=== PATIENT | male | born 1975 | race African-American/Black ===

== ENCOUNTER 2019-03-01 09:49 | Emergency (ER) | payer SELFPAY ==
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
[2019-03-01] MEDS ORDERED: SILVER SULFADIAZINE 1% 25 GM TOP ONE (11:01)
== END 2019-03-01 11:19 | disposition home or self-care (01) ==
LOC: ER 09:49
DX: T23.272A Burn of second degree of left wrist, initial encounter (principal); T31.0 Burns involving less than 10% of body surface; X19.XXXA Contact with other heat and hot substances, initial encounter; Y92.009 Unspecified place in unspecified non-institutional (private) residence as the place of occurrence of the external cause; Z72.0 Tobacco use; I10 Essential (primary) hypertension
CPT/HCPCS: 99283

== ENCOUNTER → 2023-11-19 | Emergency (ER) | payer SELFPAY ==
[~2023-11-19] MED LIST: IBUPROFEN 400 MG TAB ONE; ONDANSETRON 4 MG (ODT) TAB ONE
[2023-11-19 18:35] LABS: SARS-CoV-2 Antigen Rapid Res Negative (Negative)
--- NOTE | 2023-11-19 18:39 | ER ---
Nurse's Notes [facility] Name: Chase Irene Age: 48 yrs Sex: Male : 1975 Arrival Date: 11/19/2023 Time: 17:47 Bed Treatment Private MD: Diagnosis: Viral infection, unspecified Presentation: 11/19 18:00 Chief complaint: Patient states: Fever, chills, diarrhea, cough and body aches since Sunday. Coronavirus screen: Vaccine status:. Ebola Screen: No symptoms or risks identified at this time. Initial Sepsis Screen: Does the patient meet any 2 criteria? No. Patient's initial sepsis screen is negative. Does the patient have a suspected source of infection? No. Patient's initial sepsis screen is negative. Risk Assessment: Do you want to hurt yourself or someone else? Patient reports no desire to harm self or others. Onset of symptoms was November 19, 2023. 18:00 Method Of Arrival: Ambulatory 18:00 Acuity: BRANDEN 4 ph Historical: - Allergies: 18:03 No Known Allergies; ph - PMHx: 18:03 Hypertension; ph - Immunization history:: Adult Immunizations unknown. - Social history:: Smoking status: Patient reports the use of cigarette tobacco products, denies chronic smoking, but will smoke occasionally. Screenin:18 [facility] ED Fall Risk Assessment (Adult) History of falling in the last 3 months, kc6 including since admission No falls in past 3 months (0 pts) Confusion or Disorientation No (0 pts) Intoxicated or Sedated No (0 pts) Impaired Gait No (0 pts) Mobility Assist Device Used No (0 pt) Altered Elimination No (0 pt) Score/Fall Risk Level 0 - 2 = Low Risk. Abuse screen: Denies threats or abuse. Denies injuries from another. Nutritional screening: No deficits noted. Tuberculosis screening: No symptoms or risk factors identified. Assessment: 18:19 General: Appears in no apparent distress. comfortable, well groomed, well developed, kc6 Behavior is calm, cooperative, appropriate for age, Reports chills for fever for feeling ill for. Neuro: Level of Consciousness is awake, alert, obeys commands, Oriented to person, place, time, situation, Appropriate for age. Cardiovascular: Capillary refill < 3 seconds. Respiratory: Reports cough that is Airway is patent Trachea midline Respiratory effort is even, unlabored, Respiratory pattern is regular, symmetrical. GI: Reports diarrhea, nausea, Patient currently denies abdominal pain, vomiting. : No signs and/or symptoms were reported regarding the genitourinary system. EENT: No signs and/or symptoms were reported regarding the EENT system. Derm: No signs and/or symptoms reported regarding the dermatologic system. Skin is intact, is healthy with good turgor, Skin is pink, warm \T\ dry. Musculoskeletal: No signs and/or symptoms reported regarding the musculoskeletal system. Circulation, motion, and sensation intact. Capillary refill < 3 seconds, Range of motion: intact in all extremities. Vital Signs: 18:00 BP 151 / 94; Pulse 90; Resp 18; Temp 98; Pulse Ox 98% on R/A; Weight 104.33 kg; Height ph 5 ft. 11 in. ; 18:00 Body Mass Index 32.08 (104.33 kg, 180.34 cm) ph ED Course: 17:51 Patient arrived in ED. mr 17:54 Jaz Calles PA-C is PHCP. sb4 17:54 Wilian Paulson MD is Attending Physician. sb4 18:03 Triage completed. ph 18:03 Arm band placed on Patient placed in waiting room, Patient notified of wait time. ph 18:09 Guerda Riddle, RN is Primary Nurse. kc6 18:18 Patient has correct armband on for positive identification. Bed in low position. Call kc6 light in reach. Side rails up X 1. Adult w/ patient. Client placed on continuous cardiac and pulse oximetry monitoring. NIBP monitoring applied. 18:18 Patient maintains SpO2 saturation greater than 95% on room air. kc6 18:45 No provider procedures requiring assistance completed. Patient did not have IV access kc6 during this emergency room visit. Administered Medications: 18:18 Drug: Ondansetron Oral Disintegrating Tablet Oral Disintegrating Tablet 4 mg PO once kc6 Route: PO; 18:45 Follow up: Response: No adverse reaction; Nausea is decreased kc6 18:18 Drug: Ibuprofen PO 800 mg PO once Route: PO; kc6 18:45 Follow up: Response: No adverse reaction; Pain is decreased kc6 18:41 Not Given (Patient Refused): ns 0.9% 1000 ml IV at 1 bolus Per protocol; 1000 mL bolus kc6 Medication: 18:45 VIS not applicable for this client. kc6 Outcome: 18:39 Discharge ordered by . sb4 18:45 Discharged to home ambulatory, with significant other, kc6 18:45 Condition: good 18:45 Discharge instructions given to patient, Instructed on discharge instructions, follow up and referral plans. medication usage, Demonstrated understanding of instructions, follow-up care, medications, Prescriptions given X 1, 18:46 Patient left the ED. kc6 Signatures: Clarice Cerda, Mirza Blue mr Anya Jones RN RN Guerda Riddle RN RN kc6 Jaz Calles, PA-C PA-C james Corrections: (The following items were deleted from the chart) 18:20 18:19 GI: Reports nausea, kc6 kc6
--- NOTE | 2023-11-19 18:39 | EDPHYS ---
Physician Documentation [facility] Name: Chase Irene Age: 48 yrs Sex: Male : 1975 Arrival Date: 11/19/2023 Time: 17:47 Bed Treatment Private MD: ED Physician Wilian Paulson HPI: 11/19 18:12 This 48 yrs old Black Male presents to ER via Ambulatory with complaints of Flu sb4 Symptoms. 18:12 cough, nausea, body aches, diarrhea x 3 days. grandchildren with similar symptoms. been sb4 taking nyquil and tylenol without significant improvement in symptoms. no chest pain or sob. cough is nonproductive, no wheezing. Historical: - Allergies: 18:03 No Known Allergies; ph - PMHx: 18:03 Hypertension; ph - Immunization history:: Adult Immunizations unknown. - Social history:: Smoking status: Patient reports the use of cigarette tobacco products, denies chronic smoking, but will smoke occasionally. ROS: 18:12 Cardiovascular: Negative for chest pain, palpitations, and edema, sb4 18:12 Constitutional: Positive for body aches, chills, fatigue, fever, 18:12 Respiratory: Positive for cough, 18:12 Abdomen/GI: Positive for nausea, vomiting, and diarrhea, 18:12 All other systems are negative, Exam: 18:12 Constitutional: This is a well developed, well nourished patient who is awake, alert, sb4 and in no acute distress. Head/Face: Normocephalic, atraumatic. Eyes: Extra-ocular motions intact. Periorbital areas with no swelling, redness, or edema. ENT: Mucous membranes moist. Cardiovascular: Regular rate and rhythm with a normal S1 and S2. Respiratory: Lungs have equal breath sounds bilaterally, clear to auscultation and percussion. No rales, rhonchi or wheezes noted. No increased work of breathing, no retractions or nasal flaring. Abdomen/GI: Soft, non-tender, no distension. Skin: Warm, dry with normal turgor. Normal color with no rashes, no lesions, and no evidence of cellulitis. MS/ Extremity: Pulses equal, no cyanosis. Neurovascular intact. Full, normal range of motion. Neuro: Awake and alert, GCS 15, oriented to person, place, time, and situation. Motor strength 5/5 in all extremities. Sensory grossly intact. Vital Signs: 18:00 BP 151 / 94; Pulse 90; Resp 18; Temp 98; Pulse Ox 98% on R/A; Weight 104.33 kg; Height ph 5 ft. 11 in. ; 18:00 Body Mass Index 32.08 (104.33 kg, 180.34 cm) ph MDM: 17:55 Patient medically screened. sb4 18:12 Differential diagnosis: viral Infection, URI. sb4 18:39 Data reviewed: vital signs, nurses notes, lab test result(s), and as a result, I will sb4 discharge patient. Counseling: I had a detailed discussion with the patient and/or guardian regarding the historical points, exam findings, and any diagnostic results supporting the discharge/admit diagnosis, lab results, to return to the emergency department if symptoms worsen or persist or if there are any questions or concerns that arise at home. 18:41 Refusal of service: The patient/guardian displays adequate decision making capability sb4 and despite a detailed discussion of alternatives, benefits, risks, and consequences refuses: all lab tests. 11/19 18:04 Order name: Flu; Complete Time: 18:35 ph 11/19 18:04 Order name: SARS RAPID; Complete Time: 18:35 ph Administered Medications: 18:18 Drug: Ondansetron Oral Disintegrating Tablet Oral Disintegrating Tablet 4 mg PO once kc6 Route: PO; 18:45 Follow up: Response: No adverse reaction; Nausea is decreased kc6 18:18 Drug: Ibuprofen PO 800 mg PO once Route: PO; kc6 18:45 Follow up: Response: No adverse reaction; Pain is decreased kc6 18:41 Not Given (Patient Refused): ns 0.9% 1000 ml IV at 1 bolus Per protocol; 1000 mL bolus kc6 Disposition Summary: 11/19/23 18:39 Discharge Ordered Notes: Location: Home sb4 Problem: an ongoing problem sb4 Symptoms: are unchanged sb4 Condition: Stable sb4 Diagnosis - Viral infection, unspecified sb4 Followup: sb4 - With: Emergency Department - When: As needed - Reason: Trouble breathing, Worsening of condition Discharge Instructions: - Discharge Summary Sheet sb4 - Viral Illness, Adult sb4 Forms: - Thank You Letter sb4 - Patient Portal Instructions sb4 - Leadership Thank You Letter sb4 Prescriptions: - Zofran 4 mg Oral Tablet - take 1 tablet ORAL route every 12 hours As needed; 20 tablet; Refills: 0, sb4 Product Selection Permitted Signatures: Dispatcher [employer] Anya Guzman RN RN Guerda Sandra RN RN kc6 Jaz Calles PA-C PA-C sb4 Corrections: (The following items were deleted from the chart) 18:40 18:36 IV Saline Lock ordered. sb4 kc6 18:40 18:36 Labs collected and sent ordered. sb4 kc6
[2023-11-19 19:06] VITALS: BP 151/94; TEMP 98; O2SAT 98
== END ==
LOC: ER 17:47
DX: B34.9 Viral infection, unspecified (principal); Z11.52 Encounter for screening for COVID-19
CPT/HCPCS: 36415; 87804; 87811; 99284; Q0162